=== PATIENT | female | born 1995 | race Hispanic/Latino ===

== ENCOUNTER 2022-05-23 04:39 | Emergency (ER) | payer OTHER ==
[2022-05-23] MEDS ORDERED: Orphenadrine Citrate 60 MG/2 ML VIAL IM SCH (05:00)
[2022-05-23] MEDS ORDERED: Acetaminophen 500 MG TAB ONE (05:04)
[2022-05-23 05:07] LABS: Bilirubin 1+ (Negative); Blood, Urine Negative (Negative); Clarity Sl. Cloudy (Clear); Glucose, Urine (Dipstick) Normal (Negative); Ketone, Urine 15 mg/dL (Negative); Leukocyte 500 (Negative); Nitrite Negative (Negative); Protein, Urine (Dipstick) 30 mg/dl (Neg-Trace); Urobilinogen 12 mg/dL (Less than 2)
[2022-05-23 05:26] LABS: Bacteria/HPF None Seen HPF (None Seen); RBC/HPF None Seen HPF (0-3); Squamous Epithelial 0-3 HPF (0-3)
== END 2022-05-23 05:50 | disposition home or self-care (01) ==
LOC: CSHERS 04:39
DX: O99.891 Other specified diseases and conditions complicating pregnancy (principal); M54.50 Low back pain, unspecified; Z3A.11 11 weeks gestation of pregnancy
CPT/HCPCS: 81003; 81015; 96372; 99283; J2360

== ENCOUNTER 2022-09-11 08:45 | Day surgery (SDC) | payer OTHER | END 2022-09-11 09:30 | disposition home or self-care (01) | LOC: CSHSDC/OP 08:45 → EDSTATUS 08:49 → CSHSDC/OP 09:30 | PROVIDERS: ATTEND Obstetrics & Gynecology | DX: O36.0190 Maternal care for anti-D [Rh] antibodies, unspecified trimester, not applicable or unspecified (principal); Z67.41 Type O blood, Rh negative ==

== ENCOUNTER 2022-09-29 17:12 | Day surgery (SDC) | payer OTHER ==
[2022-09-29 17:53] VITALS: BMI 33.1
[2022-09-29 18:22] LABS: Fetal Membranes Rupture No Membranes Rupture (No Rupture)
[2022-09-29] MEDS ORDERED: hydrALAZINE 20 MG/ML VIAL SLOW IVP PRN (18:28)
== END 2022-09-29 20:28 | disposition home or self-care (01) ==
LOC: CSHLD/OP 17:12
PROVIDERS: ATTEND Obstetrics & Gynecology
DX: Z03.71 Encounter for suspected problem with amniotic cavity and membrane ruled out (principal); O47.03 False labor before 37 completed weeks of gestation, third trimester; Z79.899 Other long term (current) drug therapy; Z3A.30 30 weeks gestation of pregnancy
CPT/HCPCS: 84112; 87480; 87510; 87660; 99285

== ENCOUNTER 2022-11-08 17:12 | Day surgery (SDC) | payer OTHER ==
[2022-11-08 17:55] VITALS: BMI 34.9
[2022-11-08 18:22] LABS: Fetal Membranes Rupture No Membranes Rupture (No Rupture)
== END 2022-11-08 19:20 | disposition home or self-care (01) ==
LOC: CSHLD/OP 17:12
PROVIDERS: ATTEND Obstetrics & Gynecology
DX: Z03.71 Encounter for suspected problem with amniotic cavity and membrane ruled out (principal); Z79.899 Other long term (current) drug therapy; Z3A.36 36 weeks gestation of pregnancy
CPT/HCPCS: 84112; 99283

== ENCOUNTER 2022-11-17 12:14 | Day surgery (SDC) | payer OTHER ==
[2022-11-17 14:03] LABS: Fetal Membranes Rupture No Membranes Rupture (No Rupture)
[2022-11-17] MEDS ORDERED: hydrALAZINE 20 MG/ML VIAL SLOW IVP PRN (14:44)
== END 2022-11-17 15:10 | disposition home or self-care (01) ==
LOC: CSHLD/OP 12:14
PROVIDERS: ATTEND Obstetrics & Gynecology
DX: Z03.71 Encounter for suspected problem with amniotic cavity and membrane ruled out (principal); O47.1 False labor at or after 37 completed weeks of gestation; O99.513 Diseases of the respiratory system complicating pregnancy, third trimester; J45.909 Unspecified asthma, uncomplicated; Z79.899 Other long term (current) drug therapy; O23.593 Infection of other part of genital tract in pregnancy, third trimester; B96.89 Other specified bacterial agents as the cause of diseases classified elsewhere; Z3A.37 37 weeks gestation of pregnancy
CPT/HCPCS: 84112; 87480; 87510; 87660

== ENCOUNTER 2024-04-22 19:23 | Day surgery (SDC) | payer OTHER ==
[2024-04-22 19:53] VITALS: BMI 33.8
[2024-04-22] MEDS ORDERED: hydrALAZINE 20 MG/ML VIAL SLOW IVP PRN (20:18)
[2024-04-22] MEDS: Acetaminophen 500 MG TAB PO SCH (20:33)
[2024-04-22 20:35] LABS: Bilirubin Neg (Negative); Blood, Urine Negative (Negative); Clarity Clear (Clear); Glucose, Urine (Dipstick) Normal (Negative); Ketone, Urine Negative (Negative); Leukocyte Negative (Negative); Nitrite Negative (Negative); Protein, Urine (Dipstick) Negative (Neg-Trace); Urobilinogen Normal mg/dL (Less than 2)
[2024-04-22 20:44] LABS: Bacteria/HPF Rare-Few HPF (None Seen); CAUTI Indications for Culture Dysuria,urgency,freq; RBC/HPF 0-3 HPF (0-3); Squamous Epithelial 0-3 HPF (0-3); WBC/HPF 0-3 HPF (0-3)
[2024-04-22 20:45] LABS: Mucous/LPF 1+ LPF (<2+)
[2024-04-22 20:46] LABS: Urine Culture Reflex No No
== END 2024-04-22 22:00 | disposition home or self-care (01) ==
LOC: CSHLD/OP 19:23
PROVIDERS: ATTEND Obstetrics & Gynecology
DX: O99.891 Other specified diseases and conditions complicating pregnancy (principal); R10.2 Pelvic and perineal pain; Z3A.27 27 weeks gestation of pregnancy
CPT/HCPCS: 76815; 81001; 99283

== ENCOUNTER 2024-06-05 10:55 | Day surgery (SDC) | payer OTHER ==
[2024-06-05 11:43] VITALS: BMI 32.9
[2024-06-05 12:09] LABS: Fetal Membranes Rupture No Membranes Rupture (No Rupture)
[2024-06-05] MEDS ORDERED: Ondansetron PF 4 MG/2 ML Vial IVP PRN (12:19)
[2024-06-05] MEDS ORDERED: Lactated Ringer's 1,000 ML IV SCH (12:30)
[2024-06-05] MEDS ORDERED: Ondansetron PF 4 MG/2 ML Vial IVP SCH (13:00)
== END 2024-06-05 13:30 | disposition home or self-care (01) ==
LOC: CSHLD/OP 10:55
PROVIDERS: ATTEND Obstetrics & Gynecology
DX: Z03.71 Encounter for suspected problem with amniotic cavity and membrane ruled out (principal); Z79.899 Other long term (current) drug therapy; Z91.018 Allergy to other foods
CPT/HCPCS: 84112; 99283